=== PATIENT | male | born 1950 | race Caucasian/White ===

== ENCOUNTER 2019-03-31 21:16 | Inpatient (IN) | payer MEDICARE, OTHER ==
[~2019-03-31] VITALS: Ht 182.9 cm; Wt 77.1 kg
[~2019-03-31 21:16] MED LIST: ALBU3IS INH; AMLO5 PO; AMOCLA875 PO; AMOX875 PO; ASPI325EC PO; ATOR40TA PO; AZIT500 PO; Acidophilus La100 GM; Atarax10 MG PO; BISA10S PR; BUPR150ER PO; Benadryl Itch28.3 G1 TOP; Budeprion Xl300 MG PO; CEPH500 PO; CHOL10002; CILO100 PO; CLOBET30L TOP; CLOP75 PO; COMBIVENT RESPIM4 GM INH; CVS LUBRICATING15 ML OP; Crutch1 EACH MISC; FINA5 PO; FURO40 PO; Flonase 0.05% N16 GM; GUAIFENESIN ER600 MG PO; HYDR1TAB94 PO; HYDR454TO; Humulin R500 UNIT/1; INSU100I6 SC; INSULANPEN SC; LAVAP17G PO; LEVE500 PO; LEVEMIR FL100 UNIT/1 SC; LEVFLO500 PO; Lantus100 UNIT/1 SC; Lopressor 25 mg25 MG PO; MAGOXI400 PO; METO100ER PO; METO25ER PO; MIRALAX17 GM PO; NITR.4SL SL; NITR.4TPA TOP; NITR.8TP TOP; NYST100SU PO; Novolog Fl100 UNIT/1 SC; Novolog100 UNIT/2 SC; OXYACE5T PO; OXYC5 PO; PANT40 PO; PRED10 PO; PREG300 PO; PSYL5.85P PO; SACC250C PO; SKIEMOTO TOP; SULTRISS PO; TAMS.4ER PO; [UNRECOGNIZED DRUG - OTHER] TP
[2019-03-31 22:32] LABS: BASOPHILS ABSOLUTE AUTO 0.01 K/mm3 (0.00-0.23); BASOPHILS PERCENT AUTO 0 % (0-2); EOSINOPHILS PERCENT AUTO 0 % (0-6); Hematocrit 36.6 % (37.0-53.0); Hemoglobin 12.1 g/dL (13.5-17.5); IMMATURE GRAN ABSOLUTE AUTO 0.02 K/mm3 (0.00-0.10); IMMATURE GRAN PERCENT AUTO 0 % (0-1); LYMPHOCYTES ABSOLUTE AUTO 0.28 K/mm3 (0.84-5.20); LYMPHOCYTES PERCENT AUTO 5 % (21-46); MONOCYTES ABSOLUTE AUTO 0.45 K/mm3 (0.16-1.47); MONOCYTES PERCENT AUTO 8 % (4-13); Mean Corpuscular HGB 29.2 pg (26.0-34.0); Mean Corpuscular HGB Conc 33.1 g/dL (31.5-36.5); Mean Corpuscular Volume 88 fL (80-100); Mean Platelet Volume 12.5 fL (9.1-12.4); NEUTROPHILS ABSOLUTE AUTO 4.98 K/mm3 (1.96-9.15); NEUTROPHILS PERCENT AUTO 87 % (41-73); Platelet Count 195 K/mm3 (150-400); RDW Coefficient Variation 12.8 % (11.7-14.2); RDW Standard Deviation 41.4 fL (35.1-46.3); Red Blood Cell Count 4.15 M/mm3 (4.30-5.90); White Blood Cell Count 5.74 K/mm3 (4.00-11.30)
[2019-03-31 22:37] LABS: Base Excess Venous -9.8 mmol/L; Bicarbonate Venous 17.1 mmol/L (24.0-30.0); PCO2 Venous 40.2 mmHg (38-42); PO2 Venous 105 mmHg (38-42); pH Blood Venous 7.25 (7.34-7.37)
[2019-03-31] MEDS ORDERED: COMBIVENT RESPIM4 GM INH (22:39)
[2019-03-31] MEDS ORDERED: AMIT50 PO (22:40)
[2019-03-31] MEDS ORDERED: ATOR10 PO (22:41)
[2019-03-31] MEDS ORDERED: RESTORE PLUS1 EACH BOTHEYES (22:42)
[2019-03-31] MEDS ORDERED: Refresh Liquige15 ML BOTHEYES (22:42)
[2019-03-31] MEDS ORDERED: CODEINE-GUAIFE120 ML PO (22:44)
[2019-03-31] MEDS ORDERED: Felodipine ER10 MG PO (22:46)
[2019-03-31] MEDS ORDERED: Lomotil Tablet1 EACH PO (22:46)
[2019-03-31 22:47] LABS: BAND PERCENT MAN 20 % (0-8); BASOPHILS PERCENT MAN 0 % (0-2); EOSINOPHILS PERCENT MAN 0 % (0-6); LYMPHOCYTES ABSOLUTE MAN 0.57 K/mm3 (0.84-5.20); LYMPHOCYTES PERCENT MAN 10 % (21-46); METAMYELOCYTE ABSOLUTE MAN 0.57 K/mm3 (0.00-0.00); METAMYELOCYTE PERCENT MAN 10 % (0-0); MONOCYTES PERCENT MAN 0 % (4-13); NEUTROPHILS ABSOLUTE MAN 4.59 K/mm3 (1.96-9.15); SEG NEUTROPHILS PERCENT MAN 60 % (41-73); TOTAL CELLS COUNTED 10
[2019-03-31] MEDS ORDERED: Flonase 0.05% N16 GM (22:48)
[2019-03-31 22:50] LABS: Ethanol (Alcohol), Blood, Med <3 mg/dL; Salicylate 2.6 mg/dL (2.8-20.0)
[2019-03-31] MEDS ORDERED: ZESTORETIC 20-251 EA PO (22:50)
[2019-03-31] MEDS ORDERED: Novolog100 UNIT/2 SC (22:52)
[2019-03-31 22:56] LABS: Acetaminophen, Random <2.0 ug/mL (10.0-30.0); Alanine Aminotransfer (ALT/SGP 12 U/L (12-78); Albumin/Globulin Ratio 0.7 (0.8-1.8); Alk Phos 179 U/L (50-136); Anion Gap 20 mmol/L (6-16); Aspartate Aminotrans (AST/SGOT 6 U/L (12-37); Bilirubin, Total 0.7 mg/dL (0.1-1.0); Blood Urea Nitrogen 94 mg/dL (8-24); Bun/Creatinine Ratio 20.5 (12.0-20.0); CO2, Blood 19 mmol/L (21-32); Calcium, Blood 8.6 mg/dL (8.5-10.1); Chloride, Blood 90 mmol/L (98-108); Creatinine, Blood 4.59 mg/dL (0.60-1.20); Globulin, Blood 4.5 g/dL (2.2-4.0); Glomerular Filtration Rate 14 (60-); Glucose, Blood 917 mg/dL (70-99); Potassium, Blood 4.6 mmol/L (3.5-5.5); Sodium, Blood 129 mmol/L (136-145); Total Protein, Blood 7.5 g/dL (6.4-8.2)
[2019-03-31] MEDS ORDERED: PREG200 PO (22:56)
[2019-04-01 00:16] LABS: U Amphetamine Screen Not Detected; U Barbituate Screen Not Detected; U Benzodiazapine Screen Not Detected; U Buprenorphine Screen Not Detected; U Cannabinoids Screen Not Detected; U Cocaine Screen Not Detected; U Methadone Screen Not Detected; U Methamphetamine Screen Not Detected; U Opiates Screen Not Detected; U Oxycodone Screen Not Detected; U Phencyclidine Screen Not Detected; U Propoxyphene Screen Not Detected
--- NOTE | 2019-04-01 00:25 | NUR ---
ADMIT/EXPIRATION PT ARRIVES FROM ER, RESTLESS, STATING HELP ME. ARRIVES ON INSULIN AT 7.88UNITS/KG/HR AND VANCO. PT MOVED OVER TO BED AND BEGINS HAVING AGONAL RESP RATE AND WIDE COMPLEX J[place] IN THE 30'S, DR SILVERMAN CALLED, INTO ROOM. VERIFIED DNR STATUS WITH JULIO-SHE CONFIRMED THAT WAS PT'S WISH. 0035 DR SILVERMAN INTO ROOM, HE REPORTED THAT HE HAD A LONG DISCUSSION WITH PT'S REGARDING PT'S POTENTIAL FOR RAPID DETERIORATION TONIGHT AND DNR CODE STATUS. 0037 NO AUSCULATED HEART BEAT HEARD AND TIME OF CONFIRMED. DR SILVERMAN AWARE AND REMAINS AVAILABLE TO PT'S . REMAINS IN ROOM WITH EDD CALABRESE. NURSING BIOLOGICAL PLANT OPERATOR DWAYNE AWARE.
--- NOTE | 2019-04-01 01:26 | NUR ---
PERSONAL BELONGINGS PT'S JULIO LEFT, VERIFIED RAFIA'S HOME. SHE DID NOT WANT HIS RING REMOVED AND DENTURES ARE TO GO WITH PT TO HOME. NURSING MATERIALS TECH AWARE.
== END 2019-04-01 02:50 | DRG 871 ==
LOC: ER 21:16 → ICUW 23:34
PROVIDERS: Emergency Medicine; ADMIT Hospitalist
DX: A41.9 Sepsis, unspecified organism (principal); E11.01 Type 2 diabetes mellitus with hyperosmolarity with coma; R65.21 Severe sepsis with septic shock; J96.01 Acute respiratory failure with hypoxia; J18.9 Pneumonia, unspecified organism; G92 Toxic encephalopathy; N17.9 Acute kidney failure, unspecified; E87.1 Hypo-osmolality and hyponatremia; N18.4 Chronic kidney disease, stage 4 (severe); Z66 Do not resuscitate; E11.22 Type 2 diabetes mellitus with diabetic chronic kidney disease; K74.60 Unspecified cirrhosis of liver; E66.01 Morbid (severe) obesity due to excess calories; G47.33 Obstructive sleep apnea (adult) (pediatric); E11.51 Type 2 diabetes mellitus with diabetic peripheral angiopathy without gangrene; I25.10 Atherosclerotic heart disease of native coronary artery without angina pectoris; G40.909 Epilepsy, unspecified, not intractable, without status epilepticus; M32.9 Systemic lupus erythematosus, unspecified; F43.10 Post-traumatic stress disorder, unspecified; Z86.73 Personal history of transient ischemic attack (TIA), and cerebral infarction without residual deficits; Z91.14 Patient's other noncompliance with medication regimen; Z87.891 Personal history of nicotine dependence; Z79.02 Long term (current) use of antithrombotics/antiplatelets; Z79.4 Long term (current) use of insulin; Z79.51 Long term (current) use of inhaled steroids; Z79.899 Other long term (current) drug therapy
CPT/HCPCS: 36415; 70450; 71045; 80053; 82140; 82803; 83605; 85025; 87040; 93005; 93010; 96361; 96365; 96375; 99285-25; G0480; J1815; J2543; J3370; J7030